=== PATIENT | male | born 1940 | race Caucasian/White ===

== ENCOUNTER 2023-06-18 06:37 | Emergency (ER) | payer MEDICARE, OTHER, SELFPAY ==
[2023-06-18 06:46] VITALS: BP 146/92
--- NOTE | 2023-06-18 08:12 | ED.GENMED ---
History of Present Illness
General
Chief Complaint: Musculo-Skeletal Complaint
Source: patient
Time Seen by Provider: 06/18/23 08:01
Travel History
Have you had any contact with someone who has COVID-19?: No
Do you have any symptoms of coronavirus? Fever > 100 degrees, chills, cough, shortness of breath, sore throat, loss of taste or smell, muscle aches, or headache?: No
History of Present Illness
History of Present Illness:
83-year-old male with past medical history of atrial fibrillation, hypertension, diverticulosis presenting to the emergency department for evaluation of atraumatic right foot/ankle pain x 2 days stating that he was in physical therapy and doing
movement exercises with his feet which he thinks may have stimulated the pain noting pain along the medial and anterior portion of the right ankle in addition to some mild edema. Patient states that he has had the swelling and takes a diuretic for
this. He notes that he is also currently undergoing workup with cardiology for his atrial fibrillation after he failed 2 outpatient cardioversions. Patient denies any trauma to the ankle, fevers, weakness or numbness, calf pain or swelling. He
takes his Eliquis as prescribed. Patient states his biggest concern was possibility for DVT. No other concerns.
Past History
Past History
ED Past Medical History: Arrthythmia, Cancer (Melanoma) and HTN
ED Past Surgical History: Cardiac and Orthopedic
Social History
Tobacco: Former smoker
Alcohol: None
Drug: None
Personal:
Living: with family
Review of Systems
Review of Systems
All Other Systems: ROS reviewed and negative except as documented in HPI and ROS
Phy Exam
Physical Exam
Physical Exam:
GENERAL: Alert , in no apparent distress
EYE: conjunctiva clear
Head: Normocephalic atraumatic
NECK: Supple,
ENT: mmm.
LUNGS: no acute respiratory distress
NEUROLOGICAL: Alert and oriented
SKIN: Warm and dry, skin intact.
MUSCULOSKELETAL: mild edema to the bilateral ankles and foot with right being slightly worse than left. There is tenderness overlying the medial malleolus and just inferior to this that extends over the anterior portion of the ankle mortise but
without any overlying erythema or breaks in the skin. Patient does allow for active and passive range of motion of the ankle but does have some discomfort while doing so. There is no calf tenderness or edema. Patient has easily palpable pedal
pulses bilateral. Sensation is grossly intact to light touch.
PSYCH: Normal and appropriate interaction.
Scores
Heart Failure Risk
Heart Failure Risk Score: Not Applicable
Heart Score for Chest Pain Patients
STEMI patient?: Not applicable
Withdrawal Assessment of Alcohol
Withdrawal Assessment Completed?: Not applicable
Course
Orders/Labs/Results
Orders:
Orders
06/18/23 08:02
CR Ankle - Right Min 3 Views * Urgent
Comment:
Reason For Exam: pain
CR Foot - Right Min 3 Views Urgent
Comment:
Reason For Exam: pain
Vital Signs
Initial and Last Documented VS:
Initial Vital Signs
Temp Pulse Resp BP Pulse Ox
98.0 F 63 18 146/92 100
06/18/23 06:46 06/18/23 06:46 06/18/23 06:46 06/18/23 06:46 06/18/23 06:46
Last Documented Vital Signs
Temp Pulse Resp BP Pulse Ox
98.0 F 74 16 125/74 100
06/18/23 06:46 06/18/23 09:15 06/18/23 09:15 06/18/23 09:15 06/18/23 06:46
MDM/Problems Addressed
Differential Diagnosis Includes:
Tendinopathy, arthritis, gout, I do not have concern for septic arthritis, I do not have concern for DVT
MDM/Problems Addressed:
83-year-old male presenting emergency department for atraumatic right ankle pain after physical therapy when he notes he was doing some extra ankle exercises. Pain is clearly reproducible along the medial malleolus and just inferior to this as
well as the anterior ankle mortise overlying the dorsum of the foot/ankle. Patient notes that his biggest concern was possibility for DVT. I explained to the patient that it would be extremely unlikely given he is already on Eliquis combined with
the location of his symptoms that I expect more likely a tendinopathy versus gout versus arthritis. Will obtain an x-ray to further evaluate. Unfortunately due to patient being on Eliquis unable to treat with NSAIDs. Advised Tylenol, ice and
continued outpatient follow-up as well as to notify his physical therapy team about the pain he is currently experiencing.
*Radiology
Radiology exam reviewed: preliminary read by ED provider (No fracture. Degenerative changes noted)
*Pulse Oximetry
Patient hypoxic: no
*Critical Care Note
Total Time (30-74mins, 75-104mins- exclusive of procedures): Not Applicable
Patient Management
Escalation/DeEscalation of care consider admission/obs:
Patient's x-ray is unremarkable for any emergent pathology. I did advise him of the degenerative changes. Tylenol and ice as needed. Patient will continue with his outpatient follow-up with cardiology this coming week as well as with his
continued physical therapy appointments.
ED Attending Note
-
Portions of this chart may have been created with voice recognition software.� Occasional wrong word or��sound alike� substitutions may have occurred due to the inherent limitations of voice recognition software.
Discharge Plan
Departure
Patient Disposition: Home (Routine Discharge)
Date of Disposition: 06/18/23
Time of Disposition: 08:48
Patient with high blood pressure during this ER visit?: Yes
Discharge Problem:
Ankle pain, right
Instructions: Osteoarthritis (DC)
Prescriptions:
No Action
torsemide 20 mg Tablet
20 mg PO DAILY
Rx Instructions:
*may increase up to 40 mg next day as directed
amlodipine 2.5 mg Tablet
2.5 mg PO DAILY
terazosin 1 mg Capsule
1 mg PO HS
lorazepam 0.5 mg Tablet
0.5 mg PO PRN PRN (Reason: anxiety)
terazosin 2 mg Capsule
2 mg PO BID
aspirin [Aspirin Low-Strength] 81 mg Tablet,Chewable
81 mg PO DAILY
metoprolol succinate 25 mg Tablet Extended Release 24 Hr
25 mg PO DAILY
losartan 100 mg Tablet
100 mg PO DAILY
coenzyme Q10 100 mg Capsule
100 mg PO DAILY
PreserVision AREDS 2 Plus MV 200 mcg-15 mcg- 5 mg-1 mg Capsule
1 cap PO BID
amoxicillin-pot clavulanate 875-125 mg tablet
1 tab PO BID Qty: 14 0RF
hydrocodone-acetaminophen 5-325 mg tablet
1 tab PO Q8H PRN (Reason: Pain) Qty: 12 0RF
lidocaine 5 % adhesive patch,medicated
1 patch topical DAILY PRN (Reason: PAIN) Qty: 15 0RF
Referrals:
Suzan Isaacs CRNP [Family Provider] -
Interventions
Interventions:
*Risk Screen - Suicide Last Done: 06/18/23 06:46
*General Assessment Last Done: 06/18/23 06:46
*Neglect/Abuse Screening Last Done: 06/18/23 06:46
ED- Fall Risk Assessment Last Done: 06/18/23 06:46
*ED COVID-19 Vaccine History Last Done: 06/18/23 06:46
*Nursing Disposition Last Done: 06/18/23 09:15
ED-Musculoskeletal Assessment Last Done: 06/18/23 07:27
Discharge Date and Time
Discharge Date/Time: 06/18/23 09:28
[2023-06-18 09:15] VITALS: BP 125/74
== END 2023-06-18 09:28 | disposition home or self-care (01) ==
LOC: EMR 06:37
PROVIDERS: EMERGENCY PHYSICIAN Emergency Medicine; FAMILY PHYSICIAN Nurse Practitioner Adult Health
DX: M25.571 Pain in right ankle and joints of right foot (principal); I10 Essential (primary) hypertension; Z79.01 Long term (current) use of anticoagulants; Z87.891 Personal history of nicotine dependence
CPT/HCPCS: 99283; 73610; 73630

== ENCOUNTER 2024-04-12 02:43 | Emergency (ER) | payer MEDICARE, OTHER, SELFPAY ==
[2024-04-12 02:43] VITALS: BMI 28.4
[2024-04-12 02:45] VITALS: BP 164/74
--- NOTE | 2024-04-12 03:24 | ED.GENMED ---
Addendum entered and electronically signed by John Ruiz PA-C 04/13/24 08:12:
Radiology over read suspicious for acute diverticulitis, they feel that the reported right UVJ stone is actually in the bladder as there is no hydronephrosis. Patient notified and will be started on Augmentin
Original Note:
History of Present Illness
<MAISHA Lancaster - Last Filed: 04/12/24 03:30>
General
Chief Complaint: Abdominal Pain
Source: patient
Time Seen by Provider: 04/12/24 03:07
Nursing documentation reviewed up to this point in time: agreed with
History of Present Illness
History of Present Illness:
Pt is a 84 yo M who presents to the ED with LLQ abdominal pain. Pt states that the pain began yesterday and that he was able to manage the pain. He reports that tonight while he was asleep the pain became sharp and woke him up. Pt states that the
pain does not radiate from the LLQ. He states that it becomes sharp when he moves onto his side or touches the area. Pt describes the pain currently as dull/achy. Pt states that about 1 hour ago he took Tylenol without relief. Pt denies fever,
chills, nausea, vomiting, diarrhea, blood in the stool, dysuria, or sick contacts. Pt reports that in 2022 came to the ED and was diagnosed with diverticulitis. Pt states that his pain tonight feels similar to the pain when he previously had
diverticulitis. Pt states that he did not follow up with GI after having diverticulitis.
Past History
<MAISHA Lancaster - Last Filed: 04/12/24 03:30>
Past History
ED Past Medical History: Arrthythmia, Cancer (Melanoma) and HTN
ED Past Surgical History: Cardiac and Orthopedic
Social History
Tobacco: Former smoker
Alcohol: None
Drug: None
Personal:
Living: with family
Review of Systems
<ST TonnyNH - Last Filed: 04/12/24 03:30>
Review of Systems
Allergies reviewed?: Yes
Constitutional: Reports no symptoms
Respiratory: Reports no symptoms
Cardiac: Reports no symptoms
ABD/GI: Reports abdominal pain (LLQ)
: Reports no symptoms
Phy Exam
<MAISHA Lancaster - Last Filed: 04/12/24 03:30>
General Physical Exam
General Presentation: well appearing and no apparent distress
General age: appears stated age
General Skin: warm
General Habitus: normal
General Mental: alert
General Hydration: appears well hydrated
Cardiovascular Exam
Cardiovascular Exam: regular rate/rhythm
Pulmonary Exam
Pulmonary Exam: lungs clear
Gastrointestinal Exam
Gastrointestinal Exam: normal bowel sounds, soft and non distended
Palpation: left lower quadrant: Severe tenderness (rigidity with palpation of LLQ)
Course
<ST TonnyNH - Last Filed: 04/12/24 03:30>
Orders/Labs/Results
Orders:
Orders
04/12/24 03:31
Complete Blood Count/With Diff Urgent
Comprehensive Metabolic Panel Urgent
Lipase Urgent
04/12/24 03:33
CT Abd/pelvis Wo Iv Cont Urgent
Comment:
Reason For Exam: abdominal pain
04/12/24 05:40
Urinalysis Reflex To Culture Urgent
Date Specimen was Collected: 04/12/24
Time Specimen was Collected: 05:39
Abnormal Lab Results
04/12/24
03:31
RBC 3.96 L 10^6/uL
(4.70-6.10)
MCV 98.5 H fL
(80.0-94.0)
MCH 34.1 H pg
(27.0-31.0)
MPV 11.3 H fL
(7.4-10.4)
Absolute Lymphs (auto) 1.0 L 10^3/uL
(1.2-3.4)
Lymphocytes % 19.2 L %
(20.5-51.1)
Monocytes % 11.1 H %
(1.7-9.3)
BUN 25 H mg/dl
(9-20)
Total Bilirubin 1.4 H mg/dl
(0.2-1.3)
04/12/24 03:31
04/12/24 03:31
Vital Signs
Initial and Last Documented VS:
Initial Vital Signs
Temp Pulse Resp BP Pulse Ox
98.1 F 64 20 164/74 97
04/12/24 02:45 04/12/24 02:45 04/12/24 02:45 04/12/24 02:45 04/12/24 02:45
Last Documented Vital Signs
Temp Pulse Resp BP Pulse Ox
98.1 F 64 20 152/67 94
04/12/24 02:45 04/12/24 02:45 04/12/24 02:45 04/12/24 06:00 04/12/24 06:15
Lonnielt;Johnnie Naylor, DO - Last Filed: 04/12/24 07:19>
Orders/Labs/Results
Orders:
Orders
04/12/24 03:31
Complete Blood Count/With Diff Urgent
Comprehensive Metabolic Panel Urgent
Lipase Urgent
04/12/24 03:33
CT Abd/pelvis Wo Iv Cont Urgent
Comment:
Reason For Exam: abdominal pain
04/12/24 05:40
Urinalysis Reflex To Culture Urgent
Date Specimen was Collected: 04/12/24
Time Specimen was Collected: 05:39
Abnormal Lab Results
04/12/24
03:31
RBC 3.96 L 10^6/uL
(4.70-6.10)
MCV 98.5 H fL
(80.0-94.0)
MCH 34.1 H pg
(27.0-31.0)
MPV 11.3 H fL
(7.4-10.4)
Absolute Lymphs (auto) 1.0 L 10^3/uL
(1.2-3.4)
Lymphocytes % 19.2 L %
(20.5-51.1)
Monocytes % 11.1 H %
(1.7-9.3)
BUN 25 H mg/dl
(9-20)
Total Bilirubin 1.4 H mg/dl
(0.2-1.3)
04/12/24 03:31
04/12/24 03:31
Vital Signs
Initial and Last Documented VS:
Initial Vital Signs
Temp Pulse Resp BP Pulse Ox
98.1 F 64 20 164/74 97
04/12/24 02:45 04/12/24 02:45 04/12/24 02:45 04/12/24 02:45 04/12/24 02:45
Last Documented Vital Signs
Temp Pulse Resp BP Pulse Ox
98.1 F 64 20 152/67 94
04/12/24 02:45 04/12/24 02:45 04/12/24 02:45 04/12/24 06:00 04/12/24 06:15
<MAISHA Lancaster - Last Filed: 04/12/24 03:30>
MDM/Problems Addressed
Differential Diagnosis Includes:
Diverticulitis, hernia
<MAISHA Lancaster - Last Filed: 04/12/24 03:30>
*Critical Care Note
Total Time (30-74mins, 75-104mins- exclusive of procedures): Not Applicable
<Johnnie Naylor DO - Last Filed: 04/12/24 07:19>
Update Note
Update Note:
CT abdomen and pelvis without IV contrast
IMPRESSION:
Atrophic left kidney versus heterogeneous splenule in the left renal fossa.
2 mm calcified stone at the right UVJ with minimal right hydroureteronephrosis compatible with obstructive uropathy. Series 201, image 85 for example. Correlate with urinalysis to assess for superimposed infection. Bladder distention; correlate
clinically for urinary retention.
Small pericardial effusion. Cholelithiasis without cholecystitis. No pancreatitis. Appendix normal. No bowel obstruction.
Finalized at 4:34 AM EST
ED Attending Note
<MAISHA Lancaster - Last Filed: 04/12/24 03:30>
-
Portions of this chart may have been created with voice recognition software.� Occasional wrong word or��sound alike� substitutions may have occurred due to the inherent limitations of voice recognition software.
<Johnnie Naylor DO - Last Filed: 04/12/24 07:19>
ED Attending Note
Patient seen and examined by attending physician: Yes
I performed the substantive portion of visit, reviewed & personally made and approve the management plan that is documented in note by myself or LUAN.: Yes
ED Attending Note:
Pleasant 84-year-old male that presents to the emergency department left lower inguinal pain.Patient states that the pain began yesterday but worsened tonight. He states that the pain is in the left lower quadrant and is exacerbated by movement or
palpation. Patient states that this feels similar to previous diverticulitis. Patient did not follow-up after his most recent case of diverticulitis. Patient was seen in conjunction with the PA student. I have reviewed and agree with the history
and treatment plan presented. On my independent physical exam, patient is awake, alert, and oriented x3 minimal acute distress. Heart is regular rate and rhythm. Lungs are clear to auscultation bilaterally. Abdomen is soft without tenderness to
palpation. No CVA tenderness.
CT scan shows kidney stone on the right. Patient is Uni nephric from . Patient has absolutely no right-sided abdominal pain.
Spoke with urology regarding the right-sided kidney stone. Patient still has no pain on the right. Urinalysis is normal. Patient to be discharged home. He will follow-up with urology to discuss removal of the kidney stone as an Elective
procedure. I did discuss return to ER instructions with patient. He will return with fever chills nausea vomiting or pain on the right. Patient refuses pain medicine
Discharge Plan
Departure
Prescriptions:
No Action
torsemide 20 mg Tablet
20 mg PO DAILY
Rx Instructions:
*may increase up to 40 mg next day as directed
amlodipine 2.5 mg Tablet
2.5 mg PO DAILY
terazosin 1 mg Capsule
1 mg PO HS
lorazepam 0.5 mg Tablet
0.5 mg PO PRN PRN (Reason: anxiety)
terazosin 2 mg Capsule
2 mg PO BID
metoprolol succinate 25 mg Tablet Extended Release 24 Hr
25 mg PO DAILY
losartan 100 mg Tablet
100 mg PO DAILY
coenzyme Q10 100 mg Capsule
100 mg PO DAILY
PreserVision AREDS 2 Plus MV 200 mcg-15 mcg- 5 mg-1 mg Capsule
1 cap PO BID
lidocaine 5 % adhesive patch,medicated
1 patch topical DAILY PRN (Reason: PAIN) Qty: 15 0RF
Eliquis 5 mg Tablet
5 mg PO BID
Referrals:
UNKNOWN - PT DOES,NOT KNOW [Family Provider] -
Interventions
Interventions:
*Risk Screen - Suicide Last Done: 04/12/24 02:45
*General Assessment Last Done: 04/12/24 03:32
*Neglect/Abuse Screening Last Done: 04/12/24 02:45
ED- Fall Risk Assessment Last Done: 04/12/24 03:32
*ED COVID-19 Vaccine History Last Done: 04/12/24 03:32
XH-Lhetvk-Adpglbgxye Assessment Last Done: 04/12/24 06:48
Discharge Date and Time
Print Language: ETHIOPIAN
[2024-04-12 03:47] LABS: % Basophils 0.4 % (0-2); % Eosinophils 2.3 % (0-6); % Immature Granulocytes 0.2 % (0-0.5); % Lymphocytes 19.2 % (20.5-51.1); % Monocytes 11.1 % (1.7-9.3); % Neutrophils 66.8 % (42.2-75.2); Absolute Eosinophils 0.1 10^3/uL (0-0.7); Absolute Monocytes 0.6 10^3/uL (0.1-0.6); Absolute Neutrophils 3.5 10^3/uL (1.4-6.5); Hemoglobin 13.5 g/dL (13.0-18.0); Mean Corp Hgb Conc. 34.6 g/dL (33.0-37.0); Mean Corpuscular Hgb 34.1 pg (27.0-31.0); Mean Corpuscular Volume 98.5 fL (80.0-94.0); Mean Platelet Volume 11.3 fL (7.4-10.4); Nucleated Red Blood Cells % 0 % (-); Platelet Count 150 10^3/uL (130-400); Red Blood Cell Count 3.96 10^6/uL (4.70-6.10); Red Cell Dist. Width 12.4 % (11.5-14.5); White Blood Cell Count 5.3 10^3/uL (4.8-10.8)
[2024-04-12 03:55] LABS: ALT (SGPT) 17 U/L (0-50); AST (SGOT) 29 U/L (17-59); Albumin 4.8 g/dl (3.5-5.0); Alkaline Phosphatase 99 U/L (38-126); Blood Urea Nitrogen 25 mg/dl (9-20); Calcium 9.2 mg/dl (8.4-10.2); Carbon Dioxide 28 mmol/L (22-30); Chloride 101 mmol/L (98-107); Estimated Creatinine Clearance 51 ml/min; Glucose 91 mg/dl (70-99); Potassium 3.9 mmol/L (3.5-5.1); Sodium 141 mmol/L (135-145); Total Bilirubin 1.4 mg/dl (0.2-1.3); Total Protein 6.8 g/dl (6.3-8.2); eGFR 54.85
[2024-04-12 04:29] LABS: Lipase 118 U/L (23-300)
[2024-04-12 05:41] VITALS: BP 101/86
[2024-04-12 06:00] VITALS: BP 152/67
[2024-04-12 06:23] LABS: Urine Albumin Negative (Neg - Trace); Urine Bilirubin Negative (Negative); Urine Character Clear (Clear); Urine Color Yellow; Urine Glucose Negative (Negative); Urine Ketone Negative (Negative); Urine Leukocyte Negative (Negative); Urine Nitrite Negative (Negative); Urine Occult Blood Negative (Negative); Urine Specific Gravity 1.015 (<1.030); Urine Urobilinogen Negative (Neg - 1+)
--- NOTE | 2024-04-12 10:39 | W.PN.UPDATE ---
Update Note
Progress Note Update
84 yo male seen in ED last night for LLQ pain. He had CT scan during his visit. Prelim read failed to mention acute uncomplicated diverticulitis. Left message on patients voicemail to call back regarding discrepancy so we can discuss appropriate
follow up. Will continue to attempt to contact patient
== END 2024-04-12 07:38 | disposition home or self-care (01) ==
LOC: EMR 02:43
PROVIDERS: EMERGENCY PHYSICIAN Student in an Organized Health Care Education/Training Program
DX: N13.2 Hydronephrosis with renal and ureteral calculous obstruction (principal); R10.32 Left lower quadrant pain; Z87.891 Personal history of nicotine dependence
CPT/HCPCS: 99284; 74176; 80053; 81003; 83690; 85025

== ENCOUNTER 2024-12-05 07:43 | Emergency (ER) | payer MEDICARE, OTHER, SELFPAY ==
[2024-12-05 07:56] VITALS: BP 158/73
[2024-12-05 08:22] LABS: Hematocrit 36.7 % (39.0-52.0); Hemoglobin 12.6 g/dL (13.0-18.0); Mean Corp Hgb Conc. 34.3 g/dL (33.0-37.0); Mean Corpuscular Volume 100.8 fL (80.0-94.0); Nucleated Red Blood Cells % 0 % (-); Platelet Count 149 10^3/uL (130-400); Red Cell Dist. Width 12.5 % (11.5-14.5)
[2024-12-05 08:36] LABS: ALT (SGPT) 16 U/L (0-50); Albumin 4.6 g/dl (3.5-5.0); Blood Urea Nitrogen 24 mg/dl (9-20); Calcium 9.5 mg/dl (8.4-10.2); Carbon Dioxide 27 mmol/L (22-30); Chloride 111 mmol/L (98-107); Glucose 112 mg/dl (70-99); Lipase 93 U/L (23-300); Potassium 4.0 mmol/L (3.5-5.1); Sodium 144 mmol/L (135-145); Total Protein 6.5 g/dl (6.3-8.2)
[2024-12-05 08:37] LABS: AST (SGOT) 22 U/L (17-59); Alkaline Phosphatase 84 U/L (38-126); eGFR > 60.00
--- NOTE | 2024-12-05 11:25 | ED.GENMED ---
History of Present Illness
General
Chief Complaint: Abdominal Pain
Source: patient
Exam Limitations: none
Time Seen by Provider: 12/05/24 10:54
Nursing documentation reviewed up to this point in time: agreed with
History of Present Illness
History of Present Illness:
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 He reports this feels similar to his diverticulitis in the past. He denies any nausea
vomiting. He last moved his bowels yesterday
Past History
Past History
ED Past Medical History: Arrthythmia, Cancer (Melanoma) and HTN
ED Past Surgical History: Cardiac and Orthopedic
Social History
Tobacco: Former smoker
Alcohol: None
Drug: None
Personal:
Living: with family
Phy Exam
General Physical Exam
General Presentation: no apparent distress
General age: appears stated age
General Skin: warm and dry
General Habitus: elderly
General Mental: alert
General Hydration: appears well hydrated
Gastrointestinal Exam
Gastrointestinal Exam: soft and other (LLQ tenderness )
Neurological Exam
Neurological Exam: alert and oriented x3
Musculoskeletal Exam
Musculoskeletal Exam: full ROM
Skin Exam
Skin Exam: normal color and warm/dry
Psychiatric Exam
Psychiatric Exam: normal mood/affect
Course
Orders/Labs/Results
Orders:
Orders
12/05/24 08:00
IV Insert/Care/Rem.- Treatment PRN
12/05/24 08:08
Complete Blood Count/With Diff Urgent
Comprehensive Metabolic Panel Urgent
Lipase Urgent
12/05/24 11:26
0.9% Sodium Chloride 1000 ml [Nss] 1,000 ml IV BOLUS
12/05/24 11:28
Acetaminophen 1000MG/100Ml [Ofirmev] 1,000 mg in 100 ml IV ONCE
Acetaminophen IV Indication:: ED Narcotic Naive Pt-ONCE
12/05/24 11:30
CT Abd/Pel (IV only)-DH only Urgent
Comment:
Reason For Exam: llq pain hx of diverticulitis
12/05/24 14:08
UA Reflex to Culture [Urinalysis Reflex To Culture] Urgent
Date Specimen was Collected: 12/05/24
Time Specimen was Collected: 14:05
Urine Microscopic Reflex Cult Urgent
12/05/24 14:31
Amoxicillin 875 mg/Clav 125 mg [Augmentin 875 mg/125 mg] 1 tablet PO NOW STA
Abnormal Lab Results
12/05/24 12/05/24
08:08 14:08
RBC 3.64 L 10^6/uL
(4.70-6.10)
Hgb 12.6 L g/dL
(13.0-18.0)
Hct 36.7 L %
(39.0-52.0)
MCV 100.8 H fL
(80.0-94.0)
MCH 34.6 H pg
(27.0-31.0)
MPV 11.4 H fL
(7.4-10.4)
Absolute Lymphs (auto) 0.9 L 10^3/uL
(1.2-3.4)
Lymphocytes % 16.8 L %
(20.5-51.1)
Monocytes % 10.9 H %
(1.7-9.3)
Chloride 111 H mmol/L
(98-107)
BUN 24 H mg/dl
(9-20)
Glucose 112 H mg/dl
(70-99)
Urine Albumin (Reflex) 1+ A
(Neg - Trace)
12/05/24 08:08
12/05/24 08:08
Vital Signs
Initial and Last Documented VS:
Initial Vital Signs
Temp Pulse Resp BP Pulse Ox
97.8 F 63 22 158/73 96
12/05/24 07:56 12/05/24 07:56 12/05/24 07:56 12/05/24 07:56 12/05/24 07:56
Last Documented Vital Signs
Temp Pulse Resp BP Pulse Ox
97.8 F 64 20 156/75 97
12/05/24 07:56 12/05/24 13:29 12/05/24 13:29 12/05/24 13:22 12/05/24 13:22
Marine Scientist consulted with Physician
Marine Scientist consulted with physician?: Yes (victor hugo )
MDM/Problems Addressed
Differential Diagnosis Includes:
Not limited to diverticulitis less likely constipation bowel obstruction UTI
MDM/Problems Addressed:
As documented patient is an 84-year-old male with history of previous diverticulitis started with left lower quadrant pain similar to his diverticulitis. He presented awake alert no acute stress tender to the left abdomen no UTI symptoms. No
fever. Patient presented with normal white count nontoxic-appearing. No fevers. Patient is on anticoagulation and also does not like narcotics he was given IV Ofirmev for discomfort which did work well. He was born with 1 congenital kidney and
patient with normal renal function CAT scan done which does show soft tissue stranding at the junction of the descending and sigmoid colon suggestive of acute diverticulitis. In addition there is a solid mass in the left renal fossa region which
has had interval enlargement over the past 2 years the exact etiology is uncertain. I did review this closely with patient and may need biopsy and further evaluation for sure.
Patient feels well enough to go home we will give first dose of Augmentin here in the ED.
*Radiology
Radiology exam reviewed: radiology read reviewed
*Pulse Oximetry
SaO2: 96
Oxygen Mode of Delivery: Room air
Patient hypoxic: no
*Critical Care Note
Total Time (30-74mins, 75-104mins- exclusive of procedures): Not Applicable
ED Attending Note
-
Portions of this chart may have been created with voice recognition software.� Occasional wrong word or��sound alike� substitutions may have occurred due to the inherent limitations of voice recognition software.
Discharge Plan
Departure
Patient Disposition: Home (Routine Discharge)
Date of Disposition: 12/05/24
Time of Disposition: 14:35
Patient with high blood pressure during this ER visit?: Yes
Condition: Fair
Covid-19: Not Applicable
Discharge Problem:
Diverticulitis
Instructions: Diverticulitis (DC), BLOOD PRESSURE
Prescriptions:
New
amoxicillin-pot clavulanate 875-125 mg tablet
1 tab PO BID Qty: 20 0RF
No Action
torsemide 20 mg Tablet
20 mg PO DAILY
Rx Instructions:
*may increase up to 40 mg next day as directed
amlodipine 2.5 mg Tablet
2.5 mg PO DAILY
terazosin 1 mg Capsule
1 mg PO HS
lorazepam 0.5 mg Tablet
0.5 mg PO PRN PRN (Reason: anxiety)
terazosin 2 mg Capsule
2 mg PO BID
metoprolol succinate 25 mg Tablet Extended Release 24 Hr
25 mg PO DAILY
losartan 100 mg Tablet
100 mg PO DAILY
coenzyme Q10 100 mg Capsule
100 mg PO DAILY
PreserVision AREDS 2 Plus MV 200 mcg-15 mcg- 5 mg-1 mg Capsule
1 cap PO BID
lidocaine 5 % adhesive patch,medicated
1 patch topical DAILY PRN (Reason: PAIN) Qty: 15 0RF
Eliquis 5 mg Tablet
5 mg PO BID
amoxicillin-pot clavulanate 875-125 mg tablet
1 tab PO BID 10 Days Qty: 20 0RF
Referrals:
German Reese MD [Family Provider, Family Practice]
Activity Restrictions/Additional Instructions:
As discussed your CAT scan does show diverticulitis. You were given first dose of Augmentin here in the ER and a prescription to take twice daily for the next 10 days. [place] diet as discussed. In addition please follow-up for additional findings
on your CAT scan as reviewed. Please call your doctor today to make an appointment in the next 2 days for reevaluation. Return if any worsening of symptoms include increased abdominal pain nausea vomiting fever chills
Interventions
Interventions:
*Risk Screen - Suicide Last Done: 12/05/24 07:56
*General Assessment Last Done: 12/05/24 07:56
*Neglect/Abuse Screening Last Done: 12/05/24 07:56
*ED- Fall Risk Assessment Last Done: 12/05/24 11:41
*ED COVID-19 Vaccine History Last Done: 12/05/24 11:41
OR-Buimmi-Zkrzburnhm Assessment Last Done: 12/05/24 11:44
Discharge Date and Time
Print Language: SERBIAN
[2024-12-05] MEDS: NSS 1000 IV (11:40)
[2024-12-05] MEDS: OFIRMEV 100 IV (11:41)
[2024-12-05 13:22] VITALS: BP 156/75
[2024-12-05 14:00] VITALS: BP 170/80
[2024-12-05 14:18] LABS: Urine Character Clear (Clear)
[2024-12-05 14:28] LABS: Urine Red Blood Cell 0-2 /HPF (0-2); Urine White Cell 0-2 /HPF (0-5)
[2024-12-05] MEDS: AUGMENTIN 875 MG/125 MG 1 TABLET PO (14:39)
== END 2024-12-05 14:46 | disposition home or self-care (01) ==
LOC: EMR 07:43
PROVIDERS: Nurse Practitioner; Student in an Organized Health Care Education/Training Program; EMERGENCY PHYSICIAN Emergency Medicine; FAMILY PHYSICIAN Family Medicine
DX: K57.32 Diverticulitis of large intestine without perforation or abscess without bleeding (principal); I10 Essential (primary) hypertension; I48.91 Unspecified atrial fibrillation; Z79.01 Long term (current) use of anticoagulants; Z87.891 Personal history of nicotine dependence; Z85.820 Personal history of malignant melanoma of skin
CPT/HCPCS: 99284; 74177; 80053; 81003; 81015; 83690; 85025; Q9967

== ENCOUNTER 2024-12-13 15:43 | Emergency (ER) | payer MEDICARE, OTHER, SELFPAY ==
[2024-12-13 15:49] VITALS: BP 141/69
--- NOTE | 2024-12-13 16:33 | ED.GENMED ---
History of Present Illness
General
Chief Complaint: Post Operative Problem(s)
Time Seen by Provider: 12/13/24 16:22
History of Present Illness
History of Present Illness:
PAST MEDICAL HISTORY AND REVIEW OF OLD RECORDS
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 I reviewed records, the patient was diagnosed with diverticulitis here in the Emergency Department earlier this month.
CHIEF COMPLAINT(S)
Pain in the shoulder region and vision issues post-surgery.
HISTORY OF PRESENT ILLNESS
The patient is an 84-year-old male with a history of wet macular degeneration for which he has been receiving monthly injections for the last eight years. On November 27, the patient underwent a procedure for the placement of new lenses, not contact
lenses, as part of his treatment. Since the surgery, he reports a significant decrease in vision on the right side. His surgeon has indicated that progress is being made, and this is not a sudden onset but rather an ongoing issue post-surgery, with
some improvement noted. The vision in the left eye remains fine.
The patient presents today with significant pain in the back of the right side of the head, described as originating from an area near a lipoma that has been tender for some time. He reports the pain radiates slightly downward. There has been no
recent trauma, such as a fall or head injury. On examination, there is tenderness in the cervical spine muscles and biceps tendon both on the right. The patients right arm pain increases upon palpation of the biceps tendon, while movement of the
elbow also results in discomfort.
The patient is currently on blood-thinning medication, specifically apixaban (Eliquis). Given this medication and his symptoms, a computed tomography (CT) scan has been advised to rule out intracranial bleeding, despite the absence of trauma, to
ensure no serious underlying issues are present.
PHYSICAL EXAM
General: Alert, no acute distress.
Skin: Warm, dry.
Head: Normocephalic, atraumatic.
Neck: Supple, trachea midline. There is point tenderness to the right cervical paraspinal musculature, lipoma noted with no evidence of infection
Eyes, Ears, Nose, Mouth, and Throat: Oral mucosa moist. Markedly impaired vision to the right eye which is chronic
Cardiovascular: Normal peripheral perfusion, no edema.
Respiratory: Respirations are non-labored.
Gastrointestinal: Abdomen nondistended.
Back: Normal range of motion, normal alignment.
Musculoskeletal: Tender to palpation in the right shoulder region and biceps tendon with proximally and distally, normal range of motion, normal strength. A lipoma is noted over the right sided paraspinal musculature
Neurological: Alert and oriented to person, place, time, and situation, no focal neurological deficit observed. Excellent strength in all extremities.
Psychiatric: Cooperative, appropriate mood & affect.
PLAN
- Proceed with a computed tomography (CT) scan to rule out intracranial bleeding or other serious conditions, given the patients use of blood thinners and current symptoms.
- Discuss the results of the CT scan with the patient after completion.
- Offer an additional dose of acetaminophen (Tylenol) 325 mg, as the patient has taken 650 mg of the arthritis formulation earlier for pain management.
DIFFERENTIAL DIAGNOSIS
The Differential Diagnosis includes, in no particular order and is not limited to:
1. Complications related to recent eye surgery.
2. Hypertensive event leading to visual changes.
3. Intracranial bleeding due to blood thinners.
4. Cervical radiculopathy.
5. Muscular strain or injury.
6. Lipoma-related compression.
7. Side effect or interaction involving blood-thinning medication.
8. Idiopathic shoulder pain.
9. Infection or inflammation post-procedure.
10. Referred pain from cervical spine origin.
RADIOLOGY
- Given patient's age on Eliquis with rather severe headache, CT imaging obtained
SUMMARY OF ENCOUNTER
The patient, an 84-year-old male, presented to the emergency department with significant pain in the R mastoid / cervuicregion near a pre-existing lipoma, and a decrease in vision on the right side following eye surgery. Given the patients age, use
of blood thinners (apixaban), and symptoms, a CT scan was ordered to rule out intracranial bleeding or other serious conditions. The CT scan indicated no bleeding or anatomical issues causing the discomfort. The shoulder pain was assessed to likely
originate from muscular strain or tension, as there is no sign of infection or visible surgical complication related to his recent lens placement
DISPOSITION
Discharge.
ASSESSMENT
Muscular strain in the shoulder region, tension-related discomfort, no intracranial bleeding or acute surgical complications.
PLAN
The patient is to continue with home management, considering [id number] analgesics like acetaminophen for pain relief, and to follow-up with his primary care physician or surgeon as needed for ongoing symptoms, particularly concerning the
vision changes post-surgery.
INDEPENDENT REVIEW OF LABS AND INTERPRETATION OF TESTS
My independent interpretation of the CT scan is that there is no evidence of intracranial bleeding or anatomical causes for the reported symptoms.
PATIENT EDUCATION AND COUNSELING
The patient was informed that the shoulder pain may be muscular and tension-related, requiring time to resolve. There was reassurance provided that no intracranial or other immediate surgical complications were identified. The importance of
monitoring symptoms at home and following up with primary care was emphasized.
FOLLOW-UP INSTRUCTIONS
The patient should schedule a follow-up visit with their primary care physician to monitor symptoms. Immediate attention should be sought if symptoms worsen or new symptoms arise.
MEDICATION RECONCILIATION
The patient was advised to use kboj-[id number] acetaminophen if needed for pain management, as he had taken a dose of this earlier.
MEDICAL DECISION MAKING
- Number and Complexity of Problems Addressed: Chronic conditions affecting care include wet macular degeneration, recent eye surgery, and use of anticoagulant medication (apixaban). Differential diagnosis considered includes complications from eye
surgery, cervical radiculopathy, and muscular strain.
- Risk: Consideration of Admission/Observation: Escalation of care was considered due to the complexity and risk factors presented. Ultimately, outpatient management with close follow-up was deemed suitable due to stable examination findings and
reassurance of safety for discharge.
DIAGNOSIS
Tension headache or muscular strain in the shoulder region (M79.1), s/p recent eye lens placement procedure with visual changes (H26.40), monitoring use of anticoagulation therapy (Z79.01).
Past History
Past History
ED Past Medical History: Arrthythmia, Cancer (Melanoma) and HTN
ED Past Surgical History: Cardiac and Orthopedic
Social History
Tobacco: Former smoker
Alcohol: None
Drug: None
Personal:
Living: with family
Phy Exam
Physical Exam
Physical Exam:
See HPI
Course
Orders/Labs/Results
Orders:
Orders
12/13/24 16:33
CT Head W/o Iv Contrast Urgent
Comment:
Reason For Exam: severe R posterior pain on Eliquis
12/13/24 17:36
Acetaminophen [Tylenol] 325 mg .ROUTE .STK-MED ONE
12/13/24 17:47
Acetaminophen [Tylenol] 325 mg PO NOW STA
Vital Signs
Initial and Last Documented VS:
Initial Vital Signs
Temp Pulse Resp BP Pulse Ox
36.4 C 67 18 141/69 97
12/13/24 15:49 12/13/24 15:49 12/13/24 15:49 12/13/24 15:49 12/13/24 15:49
Last Documented Vital Signs
Temp Pulse Resp BP Pulse Ox
36.4 C 58 16 153/70 97
12/13/24 15:49 12/13/24 18:00 12/13/24 18:00 12/13/24 18:00 12/13/24 18:00
*Pulse Oximetry
SaO2: 97
Oxygen Mode of Delivery: Room air
Patient hypoxic: no
*Critical Care Note
Total Time (30-74mins, 75-104mins- exclusive of procedures): Not Applicable
ED Attending Note
-
Portions of this chart may have been created with voice recognition software.� Occasional wrong word or��sound alike� substitutions may have occurred due to the inherent limitations of voice recognition software.
Discharge Plan
Departure
Patient Disposition: Home (Routine Discharge)
Date of Disposition: 12/13/24
Time of Disposition: 18:40
Patient with high blood pressure during this ER visit?: Yes
Discharge Problem:
Cervical muscle strain
Instructions: Neck pain, BLOOD PRESSURE
Prescriptions:
No Action
torsemide 20 mg Tablet
20 mg PO DAILY
Rx Instructions:
*may increase up to 40 mg next day as directed
amlodipine 2.5 mg Tablet
2.5 mg PO DAILY
terazosin 1 mg Capsule
1 mg PO HS
lorazepam 0.5 mg Tablet
0.5 mg PO PRN PRN (Reason: anxiety)
terazosin 2 mg Capsule
2 mg PO BID
metoprolol succinate 25 mg Tablet Extended Release 24 Hr
25 mg PO DAILY
losartan 100 mg Tablet
100 mg PO DAILY
coenzyme Q10 100 mg Capsule
100 mg PO DAILY
PreserVision AREDS 2 Plus MV 200 mcg-15 mcg- 5 mg-1 mg Capsule
1 cap PO BID
lidocaine 5 % adhesive patch,medicated
1 patch topical DAILY PRN (Reason: PAIN) Qty: 15 0RF
Eliquis 5 mg Tablet
5 mg PO BID
amoxicillin-pot clavulanate 875-125 mg tablet
1 tab PO BID 10 Days Qty: 20 0RF
amoxicillin-pot clavulanate 875-125 mg tablet
1 tab PO BID Qty: 20 0RF
Referrals:
German Reese MD [Family Provider, Family Practice]
Activity Restrictions/Additional Instructions:
The CAT scan of your brain shows no acute abnormality including no bleeding. Return here if worse or other concerns. Tylenol would be safest for pain as you are on Eliquis. You could take as much as 1000 mg at a time - 4 times per day
Interventions
Interventions:
*Risk Screen - Suicide Last Done: 12/13/24 15:49
*General Assessment Last Done: 12/13/24 15:49
*Neglect/Abuse Screening Last Done: 12/13/24 16:37
*ED- Fall Risk Assessment Last Done: 12/13/24 16:37
*ED COVID-19 Vaccine History Last Done: 12/13/24 16:37
ED-Skin Assessment Last Done: 12/13/24 16:37
Discharge Date and Time
Print Language: AMERICAN
[2024-12-13 16:37] VITALS: BP 136/85; BMI 28.3
[2024-12-13] MEDS: TYLENOL 325 MG PO (17:47)
[2024-12-13 17:48] VITALS: BP 154/75
[2024-12-13 18:00] VITALS: BP 153/70
== END 2024-12-13 18:54 | disposition home or self-care (01) ==
LOC: EMR 15:43
PROVIDERS: EMERGENCY PHYSICIAN Emergency Medicine; FAMILY PHYSICIAN Family Medicine
DX: S16.1XXA Strain of muscle, fascia and tendon at neck level, initial encounter (principal); X58.XXXA Exposure to other specified factors, initial encounter; I10 Essential (primary) hypertension; I48.91 Unspecified atrial fibrillation; H35.3290 Exudative age-related macular degeneration, unspecified eye, stage unspecified; Z79.01 Long term (current) use of anticoagulants; Z85.820 Personal history of malignant melanoma of skin; Z87.891 Personal history of nicotine dependence
CPT/HCPCS: 99284; 70450

== ENCOUNTER 2024-12-27 19:41 | Emergency (ER) | payer MEDICARE, OTHER, SELFPAY ==
[2024-12-27 19:42] VITALS: BP 167/84
[2024-12-27 19:56] LABS: Hematocrit 39.4 % (39.0-52.0); Hemoglobin 13.9 g/dL (13.0-18.0); Mean Corp Hgb Conc. 35.3 g/dL (33.0-37.0); Mean Corpuscular Volume 95.4 fL (80.0-94.0); Nucleated Red Blood Cells % 0 % (-); Platelet Count 166 10^3/uL (130-400); Red Cell Dist. Width 12.0 % (11.5-14.5)
[2024-12-27 20:14] LABS: ALT (SGPT) 18 U/L (0-50); AST (SGOT) 22 U/L (17-59); Albumin 4.6 g/dl (3.5-5.0); Alkaline Phosphatase 74 U/L (38-126); Blood Urea Nitrogen 9 mg/dl (9-20); Calcium 9.8 mg/dl (8.4-10.2); Carbon Dioxide 24 mmol/L (22-30); Chloride 109 mmol/L (98-107); Glucose 109 mg/dl (70-99); Lipase 53 U/L (23-300); Potassium 4.7 mmol/L (3.5-5.1); Sodium 140 mmol/L (135-145); Total Protein 6.5 g/dl (6.3-8.2); eGFR > 60.00
[2024-12-27 21:56] VITALS: BMI 26.6
[2024-12-27 22:05] VITALS: BP 139/81
[2024-12-27] MEDS: ZOFRAN 4 MG IV ×2 (22:40→22:41)
--- NOTE | 2024-12-27 22:42 | ED.GENMED ---
History of Present Illness
General
Chief Complaint: Abdominal Symptoms
Source: patient
Exam Limitations: none
Time Seen by Provider: 12/27/24 22:07
Nursing documentation reviewed up to this point in time: agreed with
History of Present Illness
History of Present Illness:
84-year-old male with history of A-fib on Eliquis, HTN, presents for decreased appetite, dry heaves since yesterday. He felt constipated so he took a Dulcolax suppository and had a good bowel movement at 2:30 AM, since then he has had a few 'little
squirts' but no diarrhea. He denies chest pain or trouble breathing. Denies abdominal pain.
Finished regimen of Augmentin 875 twice daily for 10 days on 12/15 (12 days ago)
Past History
Past History
ED Past Medical History: Arrthythmia (A-fib on Eliquis), Cancer (Melanoma) and HTN
ED Past Surgical History: Cardiac (Cardioversion x 2) and Orthopedic
Social History
Tobacco: Former smoker
Alcohol: Occasional
Drug: None
Personal:
Living: with family (Lives with daughter who 'comes in and out.')
Review of Systems
Review of Systems
Allergies reviewed?: Yes
All Other Systems: ROS reviewed and negative except as documented in HPI and ROS
Phy Exam
Physical Exam
Physical Exam:
GENERAL: No acute distress. A&Ox3.
CONSTITUTIONAL: Afebrile.
EYES: clear, conjunctivae normal
ENMT: moist mucus membranes, Pharynx nl
RESPIRATORY: Regular respirations, nonlabored, lungs clear.
CARDIOVASCULAR: Regular rate and rhythm, no murmurs, no rubs.
GI: Soft, rotund, nontender, normal BS
MUSCULOSKELETAL: Moves with ease. Well perfused.
SKIN: Warm, dry, pink
PSYCH: Normal mood and affect. Well kept, interactive and appropriate
NEUROLOGIC: Awake, alert and oriented. No focal neurological deficits
Course
Orders/Labs/Results
Orders:
Orders
12/27/24 19:48
Complete Blood Count/With Diff Urgent
Comprehensive Metabolic Panel Urgent
Lactic Acid Urgent
Lipase Urgent
Blood Culture Urgent
MARIANNA Source: Blood/Venous
Specimen Description:
12/27/24 22:26
0.9% Sodium Chloride 1000 ml [Nss] 1,000 ml IV BOLUS
Ondansetron Injectable [Zofran] 4 mg IV NOW STA
12/28/24 00:20
Apixaban [Eliquis] 5 mg PO NOW STA
12/28/24 01:20
Acetaminophen [Tylenol] 1,000 mg .ROUTE .STK-MED ONE
12/28/24 01:21
Acetaminophen [Tylenol] 1,000 mg PO NOW STA
12/28/24 01:23
Pantoprazole [Protonix IV] 80 mg IV NOW STA
Abnormal Lab Results
12/27/24
19:48
RBC 4.13 L 10^6/uL
(4.70-6.10)
MCV 95.4 H fL
(80.0-94.0)
MCH 33.7 H pg
(27.0-31.0)
MPV 11.3 H fL
(7.4-10.4)
Absolute Lymphs (auto) 1.1 L 10^3/uL
(1.2-3.4)
Lymphocytes % 20.3 L %
(20.5-51.1)
Chloride 109 H mmol/L
(98-107)
Glucose 109 H mg/dl
(70-99)
Lactic Acid 2.3 H mmol/L
(0.7-2.0)
Total Bilirubin 1.5 H mg/dl
(0.2-1.3)
12/27/24 19:48
09/03/25 19:48
Vital Signs
Initial and Last Documented VS:
Initial Vital Signs
Temp Pulse Resp BP Pulse Ox
97.9 F 77 16 167/84 99
12/27/24 19:42 12/27/24 19:42 12/27/24 19:42 12/27/24 19:42 12/27/24 19:42
Last Documented Vital Signs
Temp Pulse Resp BP Pulse Ox
97.9 F 67 15 155/61 99
12/27/24 19:42 12/28/24 01:15 12/28/24 01:15 12/28/24 01:00 12/28/24 01:15
MDM/Problems Addressed
Differential Diagnosis Includes:
Gastritis,
MDM/Problems Addressed:
84-year-old male with history of A-fib on Eliquis, HTN, presents for decreased appetite, dry heaves since yesterday. He feels fatigued. He felt constipated so he took a Dulcolax suppository and had a good bowel movement at 2:30 AM, since then he
has had a few 'little squirts' but no diarrhea. He denies chest pain or trouble breathing. Denies abdominal pain.
Finished regimen of Augmentin 875 twice daily for 10 days on 12/15 (12 days ago)
Afebrile, NAD
CBC with no clinically significant abnormality
CMP with no clinically significant abnormality
Lipase normal
Patient does not appear significantly ill. His physical exam is unremarkable
Plan: IV fluids and Zofran, see if he can tolerate p.o. and most likely okay to discharge home
12/28 12:15 AM:
Patient states he is feeling better after Zofran. Will trial rey felicitas
1:20 AM:
Patient feeling much better but would like some Tylenol for a headache
He has had no retching since arrival
Tolerating po fluids, gave his pm dose of Eliquis
Stable for discharge
Follow-up with PCP
Prescription for Zofran sent to his pharmacy
*Pulse Oximetry
SaO2: 98
Oxygen Mode of Delivery: Room air
Patient hypoxic: no
*Critical Care Note
Total Time (30-74mins, 75-104mins- exclusive of procedures): Not Applicable
ED Attending Note
-
Portions of this chart may have been created with voice recognition software.� Occasional wrong word or��sound alike� substitutions may have occurred due to the inherent limitations of voice recognition software.
Discharge Plan
Departure
Patient Disposition: Home (Routine Discharge)
Date of Disposition: 12/28/24
Time of Disposition: 01:21
Patient with high blood pressure during this ER visit?: No
Condition: Good
Discharge Problem:
Nausea, Gastritis
Instructions: Gastritis
Prescriptions:
New
pantoprazole 40 mg tablet,delayed release (DR/EC)
40 mg PO DAILY Qty: 30 0RF
ondansetron 4 mg tablet,disintegrating
4 mg PO Q8H PRN (Reason: nausea and vomiting) 5 Days Qty: 15 0RF
No Action
torsemide 20 mg Tablet
20 mg PO DAILY
Rx Instructions:
*may increase up to 40 mg next day as directed
amlodipine 2.5 mg Tablet
2.5 mg PO DAILY
terazosin 1 mg Capsule
1 mg PO HS
lorazepam 0.5 mg Tablet
0.5 mg PO PRN PRN (Reason: anxiety)
terazosin 2 mg Capsule
2 mg PO BID
metoprolol succinate 25 mg Tablet Extended Release 24 Hr
25 mg PO DAILY
losartan 100 mg Tablet
100 mg PO DAILY
coenzyme Q10 100 mg Capsule
100 mg PO DAILY
PreserVision AREDS 2 Plus MV 200 mcg-15 mcg- 5 mg-1 mg Capsule
1 cap PO BID
lidocaine 5 % adhesive patch,medicated
1 patch topical DAILY PRN (Reason: PAIN) Qty: 15 0RF
Eliquis 5 mg Tablet
5 mg PO BID
amoxicillin-pot clavulanate 875-125 mg tablet
1 tab PO BID 10 Days Qty: 20 0RF
amoxicillin-pot clavulanate 875-125 mg tablet
1 tab PO BID Qty: 20 0RF
Referrals:
German Reese MD [Family Provider, Family Practice]
Baljeet Pettit MD [Active, Gastroenterology] - Call in 1-3 days for appt
Activity Restrictions/Additional Instructions:
As we discussed, I sent a prescription to your pharmacy for Zofran to take as needed for nausea and also for Protonix to take daily to decrease the acid in your stomach.
See your family doctor or the GI doctor if you are not feeling much better within the next 2 to 3 days.
Interventions
Interventions:
*Risk Screen - Suicide Last Done: 12/27/24 21:56
*General Assessment Last Done: 12/27/24 21:56
*Neglect/Abuse Screening Last Done: 12/27/24 21:56
*ED- Fall Risk Assessment Last Done: 12/27/24 21:56
*ED COVID-19 Vaccine History Last Done: 12/27/24 21:56
*Nursing Disposition Last Done: 12/28/24 01:50
RR-Gjciju-Wuryemdxgb Assessment Last Done: 12/27/24 21:56
Discharge Date and Time
Discharge Date/Time: 12/28/24 01:51
Print Language: BELARUSIAN
[2024-12-27] MEDS: NSS 1000 IV (22:44)
[2024-12-27 23:01] VITALS: BP 168/70
[2024-12-28] VITALS: BP 152/67
[2024-12-28] MEDS: ELIQUIS 5 MG PO (00:24)
[2024-12-28 01:00] VITALS: BP 155/61
[2024-12-28] MEDS: TYLENOL 1000 MG PO (01:21)
[2024-12-28] MEDS: PROTONIX IV 80 MG IV (01:24)
== END 2024-12-28 01:51 | disposition home or self-care (01) ==
LOC: EMR 19:41
PROVIDERS: Emergency Medicine; EMERGENCY PHYSICIAN Emergency Medicine; FAMILY PHYSICIAN Family Medicine
DX: K29.70 Gastritis, unspecified, without bleeding (principal); I48.91 Unspecified atrial fibrillation; I10 Essential (primary) hypertension; Z79.01 Long term (current) use of anticoagulants; Z87.891 Personal history of nicotine dependence; Z85.820 Personal history of malignant melanoma of skin
CPT/HCPCS: 99284; 96374; 96375; 96361; 80053; 83605; 83690; 85025; 87040

== ENCOUNTER → 2025-02-25 06:44 | Outpatient (REF) | payer MEDICARE, OTHER, SELFPAY | LOC: PAVMRI 06:44 | PROVIDERS: ATTENDING PHYSICIAN Physician Assistant; FAMILY PHYSICIAN Student in an Organized Health Care Education/Training Program | DX: M54.16 Radiculopathy, lumbar region (principal) | CPT/HCPCS: 72148 ==

== ENCOUNTER 2025-04-13 06:24 | Emergency (ER) | payer MEDICARE, OTHER, SELFPAY ==
[2025-04-13 06:35] VITALS: BP 151/65
--- NOTE | 2025-04-13 07:01 | ED.GENMED ---
History of Present Illness
General
Chief Complaint: Musculo-Skeletal Complaint
Source: patient
Exam Limitations: none
Time Seen by Provider: 04/13/25 06:53
History of Present Illness
History of Present Illness:
85yo bxjtr-ysia-sjqlzsxr male with history of atrial fibrillation on [facility] presenting for evaluation of a left arm injury. He states a car door closed onto his left arm 10 days ago while he was taking out groceries. He continues to have pain in
that area and has a focal area of swelling. He has tried ice and lidocaine patches without much relief. He is worried that he has a fracture or dislocation. He denies any paresthesias.
Past History
Past History
ED Past Medical History: Arrthythmia (A-fib on Eliquis), Cancer (Melanoma) and HTN
ED Past Surgical History: Cardiac (Cardioversion x 2) and Orthopedic
Social History
Tobacco: Former smoker
Alcohol: Occasional
Drug: None
Personal:
Living: with family (Lives with daughter who 'comes in and out.')
Phy Exam
General Physical Exam
General Presentation: well appearing and no apparent distress
General Skin: warm and dry
General Habitus: normal
General Mental: alert
ENT Exam
ENT Exam: normocephalic
Pulmonary Exam
Pulmonary Exam: no respiratory distress
Neurological Exam
Neurological Exam: alert
Chloe Coma Scale
Eye Opening: Spontaneous
Verbal Response: Oriented
Motor Response: Obeys Commands
GCS Total Score: 15
Musculoskeletal Exam
Musculoskeletal Exam: other (No deformity noted to L arm. Focal area of swelling noted to proximal upper arm consistent with a hematoma. ROM of shoulder decreased 2/2 pain. Sensation in axillary nerve distribution intact. 2+ radial pulse.)
Skin Exam
Skin Exam: normal color and warm/dry
Psychiatric Exam
Psychiatric Exam: normal mood/affect
Course
Orders/Labs/Results
Orders:
Orders
04/13/25 06:41
Humerus, Left 2 Views [CR Humerus - Left Min 2 Views*] Urgent
Comment:
Reason For Exam: hit by car door, + pain on any movement
04/13/25 07:10
Sling Left-Treatment ONCE
Vital Signs
Initial and Last Documented VS:
Initial Vital Signs
Temp Pulse Resp BP Pulse Ox
98.2 F 68 18 151/65 96
04/13/25 06:35 04/13/25 06:35 04/13/25 06:35 04/13/25 06:35 04/13/25 06:35
Last Documented Vital Signs
Temp Pulse Resp BP Pulse Ox
98.2 F 68 18 151/65 96
04/13/25 06:35 04/13/25 06:35 04/13/25 06:35 04/13/25 06:35 04/13/25 07:02
MDM/Problems Addressed
Differential Diagnosis Includes:
85yoM here with L upper arm pain after an injury 10 days ago. No deformity noted. There is soft tissue swelling noted consistent with a hematoma. LUE is neurovascularly intact. Differential diagnosis includes: hematoma, fracture
X-rays of humerus obtained which are negative for fractures per my interpretation. Supportive care discussed including ice and PRN Tylenol. Will provide sling for comfort but he was advised to only use this for a few days to prevent frozen shoulder.
Advised f/u with orthopedics if symptoms persist.
*Pulse Oximetry
SaO2: 96
Oxygen Mode of Delivery: Room air
Patient hypoxic: no
*Critical Care Note
Total Time (30-74mins, 75-104mins- exclusive of procedures): Not Applicable
ED Attending Note
-
Portions of this chart may have been created with voice recognition software.� Occasional wrong word or��sound alike� substitutions may have occurred due to the inherent limitations of voice recognition software.
Discharge Plan
Departure
Patient Disposition: Home (Routine Discharge)
Date of Disposition: 04/13/25
Time of Disposition: 07:11
Patient with high blood pressure during this ER visit?: Yes
Discharge Problem:
Injury of left lower arm
Instructions: Muscle and Bone Pain (DC)
Prescriptions:
No Action
torsemide 20 mg Tablet
20 mg PO DAILY
Rx Instructions:
*may increase up to 40 mg next day as directed
amlodipine 2.5 mg Tablet
2.5 mg PO DAILY
terazosin 1 mg Capsule
1 mg PO HS
lorazepam 0.5 mg Tablet
0.5 mg PO PRN PRN (Reason: anxiety)
terazosin 2 mg Capsule
2 mg PO BID
metoprolol succinate 25 mg Tablet Extended Release 24 Hr
25 mg PO DAILY
losartan 100 mg Tablet
100 mg PO DAILY
coenzyme Q10 100 mg Capsule
100 mg PO DAILY
PreserVision AREDS 2 Plus MV 200 mcg-15 mcg- 5 mg-1 mg Capsule
1 cap PO BID
lidocaine 5 % adhesive patch,medicated
1 patch topical DAILY PRN (Reason: PAIN) Qty: 15 0RF
Eliquis 5 mg Tablet
5 mg PO BID
amoxicillin-pot clavulanate 875-125 mg tablet
1 tab PO BID 10 Days Qty: 20 0RF
amoxicillin-pot clavulanate 875-125 mg tablet
1 tab PO BID Qty: 20 0RF
pantoprazole 40 mg tablet,delayed release (DR/EC)
40 mg PO DAILY Qty: 30 0RF
ondansetron 4 mg tablet,disintegrating
4 mg PO Q8H PRN (Reason: nausea and vomiting) 5 Days Qty: 15 0RF
Referrals:
Denzel Irving MD [Active, Orthopedics]
Activity Restrictions/Additional Instructions:
Apply ice to affected area. Take Tylenol as needed for pain. Use sling for comfort but try not to use this more than few days to prevent frozen shoulder.
Please follow-up with orthopedics if symptoms persist.
Interventions
Interventions:
*Risk Screen - Suicide (C-SSRS) Last Done: 04/13/25 06:35
*Nursing Disposition Last Done: 04/13/25 07:40
ED-Musculoskeletal Assessment Last Done: 04/13/25 07:10
Discharge Date and Time
Discharge Date/Time: 04/13/25 07:45
Print Language: THAI
== END 2025-04-13 07:45 | disposition home or self-care (01) ==
LOC: EMR 06:24
PROVIDERS: EMERGENCY PHYSICIAN Emergency Medicine; FAMILY PHYSICIAN Nurse Practitioner Adult Health
DX: S49.92XA Unspecified injury of left shoulder and upper arm, initial encounter (principal); X58.XXXA Exposure to other specified factors, initial encounter; I48.91 Unspecified atrial fibrillation; I10 Essential (primary) hypertension; Z79.01 Long term (current) use of anticoagulants; Z85.820 Personal history of malignant melanoma of skin; Z87.891 Personal history of nicotine dependence
CPT/HCPCS: 99283; 73060